=== PATIENT | female | born 1980 | race Two or more races ===

== ENCOUNTER → 2020-07-12 11:32 | Outpatient (BNVA) | payer OTHER, SELFPAY | PROVIDERS: PCP Family Medicine; Visit Provider Surgery | DX: N63.21 Unspecified lump in the left breast, upper outer quadrant (principal) | CPT/HCPCS: 99202 ==

== ENCOUNTER 2020-07-22 13:35 | Outpatient (REF) | payer OTHER, SELFPAY ==
--- NOTE | ~2020-07-22 | MM_ITS ---
EXAMINATION: MM DIAGNOSTIC DIGITAL BREAST TOMOSYNTHESIS, BILATERAL US DIAGNOSTIC ULTRASOUND BREAST, LEFT CLINICAL INFORMATION: Pain upper outer left breast and axilla were in recent months. Chronic stable palpable nodule upper outer left breast for years. The lifetime risk of breast cancer based on the Tyrer-Cuzick Model is 9%. COMPARISON: Mammography: 03/10/2017, targeted left breast ultrasound 03/10/2017, 09/08/2017, 03/14/2018. TECHNIQUE: Digital mammography is performed in craniocaudal and mediolateral oblique views. Digital breast tomosynthesis is performed in implant-displaced craniocaudal and implant-displaced mediolateral oblique views. Synthesized 2D images are generated from the tomosynthesis. Computer-aided detection (CAD) is performed for this exam. Additional exaggerated implant displaced left CC view is provided. Ultrasound left breast is targeted to the area of clinical concern upper outer quadrant left breast and left axilla. Grayscale imaging and color Doppler are performed without and with harmonics. FINDINGS: There are scattered areas of fibroglandular density (ACR BI-RADS breast composition Category b). The implant contours are unremarkable. There are no significant masses, abnormal calcifications, or other abnormalities. There is a stable circumscribed nodule upper outer quadrant left breast similar to prior exam 2017. There is no adenopathy. The skin contours are smooth. No coarsening of the Luis's ligaments. No duct ectasia. Ultrasound left breast demonstrates oval subcutaneous nodule 2:00 position 10 cm from nipple measuring approximately 8 x 7 x 3 mm. There is subtle central increased echogenicity and central color flow suggesting intramammary node. The lesion is stable in size when compared with prior ultrasound exams. There is no surrounding hyperemia. No skin thickening or edema tracking in the soft tissue planes. There is no duct ectasia. Imaging left axilla is unremarkable. Results are discussed with the patient at time of visit. MM/MM tomosynthesis diag imp BI IMPRESSION: 1. No mammographic evidence of malignancy or inflammatory changes. 2. Stable circumscribed nodule under 1 cm upper outer left breast, similar to 2017. ASSESSMENT: BI-RADS 2: Benign RECOMMENDATION: 1. Patient's left breast pain should be managed based on the clinical impression. 2. Otherwise, routine annual screening mammography, beginning age 40, or earlier as clinical risk factors warrant. This patient's information was entered into a reminder system with a target due date for their next mammogram.
== END 2020-07-22 13:36 | disposition home or self-care (01) ==
LOC: HO.MAMMO 13:35
PROVIDERS: PCP Family Medicine; Visit Provider Family Medicine
DX: N63.21 Unspecified lump in the left breast, upper outer quadrant (principal)
CPT/HCPCS: 76642; 77062; 77066

== ENCOUNTER 2022-09-22 14:00 | Outpatient (REF) | payer OTHER, SELFPAY ==
--- NOTE | ~2022-09-22 | MM_ITS ---
EXAMINATION: MM SCREENING DIGITAL BREAST TOMOSYNTHESIS, BILATERAL CLINICAL INFORMATION: Screening. Asymptomatic. The lifetime risk of breast cancer based on the Tyrer-Cuzick Model is 10%. COMPARISON: Mammography: 07/22/2020, 03/10/2017 (baseline); ultrasound left breast 07/22/2020, 03/14/2018, 09/08/2017, 03/10/2017. TECHNIQUE: Digital mammography is performed in craniocaudal and mediolateral oblique views along with computer-aided detection (CAD). Digital breast tomosynthesis is performed in implant-displaced craniocaudal and implant-displaced mediolateral oblique views along with computer-aided detection (CAD). Synthesized 2D images are generated from the tomosynthesis. FINDINGS: There are scattered areas of fibroglandular density (ACR BI-RADS breast composition Category b). Bilateral implant contours are smooth and similar to prior studies. Left breast has a chronic benign smooth oval nodule upper outer quadrant similar to decreased from prior studies. There is no significant mass or architectural abnormality or developing density. No abnormal calcifications. The axilla and skin contours are unremarkable. No significant changes from prior studies. MM/MM tomosynthesis screen imp BI IMPRESSION: No mammographic evidence of malignancy. ASSESSMENT: BI-RADS 2: Benign RECOMMENDATION: Routine annual mammography screening. This patient's information was entered into a reminder system with a target due date for their next mammogram.
== END 2022-09-22 14:01 | disposition home or self-care (01) ==
LOC: HO.MAMMO 14:00
PROVIDERS: PCP Nurse Practitioner Family; Visit Provider Nurse Practitioner Family
DX: Z12.31 Encounter for screening mammogram for malignant neoplasm of breast (principal)
CPT/HCPCS: 77063; 77067

== ENCOUNTER 2023-09-24 08:44 | Outpatient (REF) | payer OTHER, SELFPAY ==
--- NOTE | ~2023-09-24 | MM_ITS ---
EXAMINATION: MM SCREENING DIGITAL BREAST TOMOSYNTHESIS, BILATERAL CLINICAL INFORMATION: Screening. Asymptomatic. COMPARISON: Mammography: Studies compared to prior exams dating back to 2017. TECHNIQUE: Digital mammography is performed in craniocaudal and mediolateral oblique views along with computer-aided detection (CAD). Digital breast tomosynthesis is performed in implant-displaced craniocaudal and implant-displaced mediolateral oblique views along with computer-aided detection (CAD). Synthesized 2D images are generated from the tomosynthesis. FINDINGS: There are scattered areas of fibroglandular density (ACR BI-RADS breast composition Category b). There are no significant masses, abnormal calcifications, or other abnormalities. MM/MM tomosynthesis screen imp BI IMPRESSION: There are no significant changes from prior study. ASSESSMENT: BI-RADS BI-RADS 1 - Negative RECOMMENDATION: Routine annual mammography screening. 1 year F/U This patient's information was entered into a reminder system with a target due date for their next mammogram.
== END 2023-09-24 08:45 | disposition home or self-care (01) ==
LOC: HO.MAMMO 08:44
PROVIDERS: PCP Nurse Practitioner Family; Visit Provider Nurse Practitioner Family
DX: Z12.31 Encounter for screening mammogram for malignant neoplasm of breast (principal)
CPT/HCPCS: 77063; 77067

== ENCOUNTER → 2023-09-24 08:45 | Outpatient (BNV) | payer OTHER, SELFPAY | PROVIDERS: PCP Nurse Practitioner Family; Visit Provider Radiology Diagnostic Radiology | DX: Z12.31 Encounter for screening mammogram for malignant neoplasm of breast (principal) | CPT/HCPCS: 77063; 77067 ==

== ENCOUNTER 2024-11-23 16:09 | Outpatient (REF) | payer OTHER, SELFPAY ==
--- NOTE | ~2024-11-23 | MM_ITS ---
EXAMINATION: MM SCREENING DIGITAL BREAST TOMOSYNTHESIS, BILATERAL CLINICAL INFORMATION: Screening. Asymptomatic. COMPARISON: Mammography: Comparison is made with relevant avialable priors. TECHNIQUE: Digital mammography is performed in craniocaudal and mediolateral oblique views along with computer-aided detection (CAD). Digital breast tomosynthesis is performed in implant-displaced craniocaudal and implant-displaced mediolateral oblique views along with computer-aided detection (CAD). FINDINGS: There are scattered areas of fibroglandular density (ACR BI-RADS breast composition Category b). Bilateral retropectoral saline implants are normal-appearing. There are no significant masses, abnormal calcifications, or other abnormalities. MM/MM tomosynthesis screen imp BI IMPRESSION: There are no significant changes from prior study. ASSESSMENT: BI-RADS BI-RADS 2 - Benign Findings RECOMMENDATION: Routine annual mammography screening. 1 year F/U This patient's information was entered into a reminder system with a target due date for their next mammogram. Electronically signed by: Moni Suarez DO 11/24/2024 08:29 PM EDT
--- OUTSIDE RECORDS SUMMARY | 2024-11-23 16:20 | XMS_ITS | Continuity of Care Document ---
Author Name [facility] Organization [facility] Care Team Providers Care Die Sizer Name Role Phone [facility] Unavailable Unavailable Problems Combined list of problems from Department of Defense and Veterans Affairs facilities. It does not include entries that were removed or entered in error. Problem Status Onset Date Problem Type Date of Resolution Comments Source visit for: services physical Active Condition DoD NORMAL ROUTINE HISTORY AND PHYSICAL ADULT (18-65) Active Condition DoD NORMAL ROUTINE HISTORY AND PHYSICAL - Inactive Condition Discussed control methods at length with pt. and pt has chosen DMPA. Pt cont to breast feed off and on although infant is in childcare. Side effects reviewed with pt as well as plan of care for med administration and pt in agreement. Backup method x 1 mo and pt agrees. UCG test prior to med administration. DoD bleeding during Active Condition minor amount of bleeding. No labor, no LOF, no continued bleeding., RNST, Patient reassured and given precautions. [facility] NORMAL CHECKUP - THIRD TRIMESTER Active Condition DoD ANEMIA Active Condition CONT WITH FESO4 PO QD AND HIGH FE DIET DoD VAGINITIS YOMI ALBICANS Inactive Condition [facility] NORMAL CHECKUP - SECOND TRIMESTER Active Condition D/W PT:PTL/PIH PRECFKC QDPARKING PASS GIVENCOMFORT MEASURES REVIEWED FOR N+V, ENCOURAGED TO RTC IF N+V CONT AND NOT ABLE TO KEEP FOOD/FLUIDS DOWNDIRECTED PT TO DESK FOR QUESTIONS ABOUT DELIVERY COVERAGE DoD Supervision Of Normal First Active Condition D/W PT:PTL/PIH PRECTS AND CF SCREENING OFFERRED- DECLINES BOTH DoD NORMAL CHECKUP - INITIAL Active Condition NL initial OB exam. Unable to obtain good quality CRL by U/S (due to position / movement) - BPD c/w dates. Will use second trimester scan for dating. Ab precautions discussed. Discussed diet, exercise, weight gain and NL complaints of . Questions answered. 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 DoD NO PSYCHIATRIC DIAGNOSIS ON AXIS III Inactive Condition DoD AXIS IV PROBLEMS PRIMARY SUPPORT GROUP Active Condition gone DoD AXIS V GLOBAL ASSESS OF FUNCTIONING (GAF) SCALE ___ (100-0) Active Condition 51-60 DoD NO PSYCHIATRIC DIAGNOSIS ON AXIS II Inactive Condition deferred DoD ANXIETY DISORDER NOS Active Condition with depressive features DoD Pelvic Exam (Internal) Active Condition DoD Chronic post-traumatic stress disorder Active Condition [facility] Fibroadenoma of breast Active Condition Mar 17, 2017 Entered By: JENNIFER LUNDBERG Comment: Diagnost Mammo (and US), L Breast MAR 26: BiRADS 3 (prob benign)Apr 09, 2017 Entered By: JENNIFER LUNDBERG Comment: Likely Fibro-Adenoma; repeat US, L Breast September Entered By: JENNIFER LUNDBERG Comment: Has Breast Implants B/LMay 2017 Entered By: JENNIFER LUNDBERG Comment: Targeted US, L Breast SEPTEMBER 24 @ [facility]:September 17, 2017 Entered By: JENNIFER LUNDBERG Comment: BI RADS 3 (Prob. Benign); Is Likely Fibroadenoma Overlying ImplantDec 2017 Entered By: JENNIFER LUNDBERG Comment: US of L Breast MAR 27: BI RADS 3 (Prob Benign); repeat FEB 25 [facility] Examination of Defined Subpopulations (ICD-9-CM V70.5) Active Condition [facility] Major depressive disorder Active Condition Aug 15, 2015 Entered By: TRENT HART Comment: Recurrent, moderate, without psychotic features [facility] Major Depressive Disorder, Single Episode, Moderate (ICD-9-CM 296.22) Active Condition [facility] Nicotine dependence Active Condition [facility] Onychomycosis of toenails Active Condition [facility] Palpitations Active Condition Aug 04, 2022 Entered By: USMAN MONTANEZ Comment: Had stress test, echo 14d holter and EKG all normal/Neg [facility] Panic Disorder with Agoraphobia (ICD-9-CM 300.21) Active Condition [facility] Paresthesia Active Condition [facility] Peripheral nerve disease Active Condition Oct 15, 2015 Entered By: JENNIFER LUNDBERG Comment: Paresthesias in Four Ext's as of OCTOBER 23:Oct 15, 2015 Entered By: JENNIFER LUNDBERG Comment: Do W/U, then Refer NeuroJul 2015 Entered By: JENNIFER LUNDBERG Comment: EMG/NCS, OCTOBER 23 @ [facility]: No EMG/NCS Evidence forJul 2015 Entered By: JENNIFER LUNDBERG Comment: NeuropathyJul 2015 Entered By: JENNIFER LUNDBERG Comment: See Neuro Note dated NOVEMBER 22Dec 2017 Entered By: JENNIFER LUNDBERG Comment: See Neuro Note Dated FEB 24 [place] Posttraumatic Stress Disorder * (ICD-9-CM 309.81) Active Condition [facility] Sun sensitivity, constitutional Active Condition [facility] Care by local physician Inactive Condition 05/28/2020 Oct 15, 2015 Entered By: JENNIFER LUNDBERG Comment: PCP: Dr Jared Burns [facility] Cyst of breast (SNOMED CT [id number]) Inactive Condition 05/28/2020 Oct 15, 2015 Entered By: JENNIFER LUNDBERG Comment: Last PAP 2014; thinks it was NL Oct 15, 2015 Entered By: JENNIFER LUNDBERG Comment: Ab0 L3 as of OCTOBER 23 [place] gall bladder Inactive Condition 05/28/2020Oct Entered By: JENNIFER LUNDBERG Comment: Cholecystectomy MAR 22; Acute Cholelithiasis [place] Routine gynecologic examination done Inactive Condition 05/28/2020 May 27, 201 9 Entered By: JENNIFER LUNDBERG Comment: Last PAP MAY 28: no Dysplasia [place] Diagnosis: ICD-10-CM Z84.81 Family history of carrier of genetic disease Active Diagnosis [facility] Diagnosis: ICD-10-CM M25.569 Pain in unspecified knee Active Diagnosis [facility] Diagnosis: ICD-10-CM M79.642 Pain in left hand Active Diagnosis [facility] Diagnosis: ICD-10-CM Z12.4 Encounter for screening for malignant neoplasm of cervix Active Diagnosis [facility] Diagnosis: ICD-10-CM F17.210 Nicotine dependence, cigarettes, uncomplicated Active Diagnosis [facility] Medications Combined list of outpatient medications from Department of Defense and Veterans Affairs facilities.Medications provided include 1) outpatient medications from the last 15 months, and 2) patient-reported medications. Medication Details Route Status Patient Instructions Prescription Expires Prescription Number Last Dispense Date Ordering Provider Order Date Order Qty Source DICLOFENAC NA 75MG TAB,EC TAKE ONE TABLET BY MOUTH TWICE DAILY FOR PAIN/INF LAMMATIO N ORAL 06/30/2024 [id number] TARIK USMANIleana VASQUEZ 2024 20 [facility] NAPROXEN 250MG TAB TAKE ONE TABLET BY MOUTH ONCE DAILY NEEDED FOR INFLAMMA TION OF THE TENDON TAKE WITH FOOD USE IN THE MORNING BEFORE WORK; TAKE WITH FOOD. HSE ADVISOR IN [place] ORAL 06/18/2024 [id number] CELESTINE ALVAREZ 2024 10 [facility] OTHER CAP/TAB TAKE IUD ACTIVE Alean BOOTH 2018 [facility] [place] Allergies, Adverse Reactions, Alerts Combined list of allergies from Department of Defense and Veterans Affairs facilities. It does not include entries that were removed or entered in error. Substance Category Reaction Severity Reaction type Status Date Reported Comments Source BACTRIM Propensity to adverse reactions to drug (finding) Itching, Anaphylaxis active 6 [facility] BACTRIM (SULFAMETHOX AZOLE/TRIMET HOPRIM) Drug allergy (disorder) Rash active 0 [facility] [place] Sulfamethoxa zole/Trimeth oprim Drug allergy (disorder) Pruritus, Anaphylaxis active 6 [facility] TERBINAFINE Propensity to adverse reactions to drug (finding) Pharyngeal swelling active 1 [facility] Immunizations Combined list of available immunizations from the Department of Defense and Veterans Affairs facilities. Immunization Series Date Given Administered By Site Reaction Lot Number CVX Code Drug English Composition Instructor Status Comments Source COVID-19 (MODERNA), MRNA, LNP-S, PF, 50 MCG/0.5 ML (AGES 12+ YEARS) 2024 SAMIR BUCKLEY SSA H LEFT DELTO ID [id number] 312 complet ed [facility] [place] INFLUENZA, SPLIT VIRUS, TRIVALENT, PF 2024 INASAMIR ALYCE H LEFT DELTO ID [id number] 140 complet ed [facility] COVID-19 (MODERNA), MRNA, LNP-S, PF, 50 MCG/0.5 ML (AGES 12+ YEARS) 1 2023 LEANDRA KNAPP RIGHT DELTO ID [id number] 312 complet ed [facility] INFLUENZA, INJECTABLE, QUADRIVALENT, PRESERVATIVE FREE 2023 ARIALEANDRA Carvajal LEFT DELTO ID [id number] 150 complet ed Completed Series, [facility] INFLUENZA, RECOMBINANT, QUADRIVALENT, INJECTABLE, PRESERVATIVE FREE 2021 185 complet ed [facility] PNEUMOCOCCAL CONJUGATE PCV20, POLYSACCHARID E [id number] CONJUGATE, ADJUVANT, PF 2021 216 complet ed [facility] COVID-19 (MODERNA), MRNA, LNP-S, PF, 100 MCG/0.5 ML DOSE 2 2020 207 complet ed MOD; [id number]; 1 [facility] COVID-19 (MODERNA), MRNA, LNP-S, PF, 100 MCG/0.5 ML DOSE 1 2020 207 complet ed MOD; [id number]; 1 [facility] INFLUENZA, INJECTABLE, QUADRIVALENT, PRESERVATIVE FREE 2020 150 complet ed [facility] TDAP 2020 115 complet ed Site: Left Deltoid [facility] TD (ADULT), 2 LF TETANUS TOXOID, PRESERVATIVE FREE, ADSORBED 2018 09 complet ed Site: Left Deltoid [facility] INFLUENZA, INJECTABLE, QUADRIVALENT 2018 158 complet ed Site: Left Deltoid [place] INFLUENZA, SEASONAL, INJECTABLE 2016 141 complet ed Site: Right Deltoid [place] FLU,3 YRS (HISTORICAL) 2016 88 complet ed [place] typhoid Vi capsular polysaccharid e vaccine 2 2006 [id number] Adim8 (BP) complet ed typhoid Vi capsular polysacch aride vaccine DoD hepatitis A and hepatitis B vaccine 3 2006 [id number] 104 LocalMed (SKB) complet ed hepatitis A and hepatitis B vaccine DoD influenza virus vaccine, live, attenuated, for intranasal use 0 2006 [id number] 111 Avancen MOD. (MED) complet ed influenza virus vaccine, live, attenuate d, for intranasa l use DoD typhoid Vi capsular polysaccharid e vaccine 2 2004 UNK 101 (TRN) complet ed typhoid Vi capsular polysacch aride vaccine DoD influenza virus vaccine, whole virus 0 2004 UNKNOWN 16 Unknown (UNK) comple t ed influenza virus vaccine, whole virus DoD influenza virus vaccine, split virus (incl. purified surface antigen)-reti red CODE 0 2002 [id number] 15 Other (OTH) complet ed influenza virus vaccine, split virus (incl. purified surface antigen)- retired CODE DoD anthrax vaccine 2 2002 [id number] 24 Other (OTH) complet ed anthrax vaccine DoD anthrax vaccine 2 2002 [id number] 24 (BPT) complet ed anthrax vaccine DoD adenovirus vaccine, type 7, live, oral 1 2002 UNKNOWN 55 Unknown (UNK) comple t ed adenoviru s vaccine, type 7, live, oral DoD typhoid vaccine, parenteral, other than acetone-kille d, dried 0 2002 UNKNOWN 41 Unknown (UNK) comple t ed typhoid vaccine, parentera l, other than acetone-k illed, dried DoD trivalent poliovirus vaccine, live, oral 0 2002 UNKNOWN 02 Unknown (UNK) comple t ed trivalent polioviru s vaccine, live, oral DoD poliovirus vaccine, inactivated 1 2002 [id number] 10 Sanofi Pasteur (PMC) complet ed polioviru s vaccine, inactivat ed DoD yellow fever vaccine 0 2002 [id number] 37 [employer] (AVB) complet ed yellow fever vaccine DoD hepatitis B vaccine, adult dosage 2 2002 UNKNOWN 43 Unknown (UNK) comple t ed hepatitis B vaccine, adult dosage DoD hepatitis A vaccine, adult dosage 2 2002 UNKNOWN 52 Unknown (UNK) comple t ed hepatitis A vaccine, adult dosage DoD hepatitis A and hepatitis B vaccine 2 2002 [id number] 104 Smithine (SKB) complet ed hepatitis A and hepatitis B vaccine DoD measles, mumps and rubella virus vaccine 0 2002 [id number] Merck (MSD) complet ed measles, mumps and rubella virus vaccine DoD influenza virus vaccine, split virus (incl. purified surface antigen)-reti red CODE 0 2002 UNKNOWN 15 Unknown (UNK) comple t ed influenza virus vaccine, split virus (incl. purified surface antigen)- retired CODE DoD influenza virus vaccine, whole virus 1 2002 [id number] 16 Sanofi Pasteur ([facility]) complet ed influenza virus vaccine, whole virus DoD hepatitis B vaccine, adult dosage 1 2002 UNKNOWN 43 Unknown (UNK) comple t ed hepatitis B vaccine, adult dosage DoD hepatitis A vaccine, adult dosage 1 2002 UNKNOWN 52 Unknown (UNK) comple t ed hepatitis A vaccine, adult dosage DoD hepatitis A and hepatitis B vaccine 2 2002 [id number] 104 Nuvolaine (SKB) complet ed hepatitis A and hepatitis B vaccine DoD tetanus and diphtheria toxoids, adsorbed, preservative free, for adult use (2 Lf of tetanus toxoid and 2 Lf of diphtheria toxoid) 0 2002 [id number] Sanofi Pasteur ([facility]) complet ed tetanus and diphtheri a toxoids, adsorbed, preservat deven free, for adult use (2 Lf of tetanus toxoid and 2 Lf of diphtheri a toxoid) DoD meningococcal polysaccharid e vaccine (MPSV4) 1 2002 [id number] Sanofi Pasteur ([facility]) complet ed meningoco ccal polysacch aride vaccine (MPSV4) DoD Results Combined list of recent chemistry, hematology and other laboratory results from Department of Defense and Veterans Affairs, ranging from 15 months to all on record, depending upon the facility. Order Name Results Value Reference Range Date Interpretation Specimen Comments Source MISCELLA NEOUS (QUEST) MISCELLANE OUS See Comment 05/31 Specimen Type: BLOOD Comment: ~For Test: MISCELLANEO US (QUEST) ~Fulgent Porphyria Disorders NGS Panel Refer to CPRS: [place] Imag. Display for Lab Results Ordering Provider: BLANCO JUNIOR Report Released Date/Time: May 31, 2024 11:41 AM Reporting Lab: [facility] [address] [facility] [address] Performing Lab: [facility] [address] [facility], [address] [place] [id number] [facility] MISCELLA NEOUS (QUEST) MISCELLANE OUS comment 05/31 Specimen Type: BLOOD Comment: ~For Test: MISCELLANEO US (QUEST) ~MNG Amyloid Related Disorders (NGS Panel and Copy Number Analysis) 07-11-2024 Refer to CPRS: [place] Imag. Display for Lab Results Ordering Provider: BLANCO JUNIOR Report Released Date/Time: May 31, 2024 11:40 AM Reporting Lab: [facility] [address] [facility] [address] Performing Lab: [facility] [address] [facility], [address] [place] [address] [facility] PORPHYRI NS, TOTAL PLASMA (Q) PORPHYRINS [MASS/VOLU ME] IN SERUM OR PLASMA 0.8 ug/L 1.0 - 5.6 03/30 L Specimen Type: PLASMA Comment: Total porphyrins were within the normal range. This test may not detect elevated porphyrins if the patient is asymptomati c or is undergoing treatment. Please be aware that some porphyrins degrade when samples are unprotected from light or are transported at refrigerate d or ambient temperature . Results reported as below reportable range are considered normal as there are no association s between low porphyrin levels and porphyrin disorders. A portion of the testing was performed at [address] ion reviewed by: Kaitlynn Kelly MD, FACMG. IF THE ORDERING/TR EATING PHYSICIAN HAS ANY QUESTIONS REGARDING THESE RESULTS, PLEASE CONTACT THE [employer] [facility] AT [phone] ext [phone] or ext [phone] AND ASK TO SPEAK WITH THE ALUMINUM WELDER HAIR WORKER. FOR GENERAL QUESTIONS ABOUT [employer] [facility], PLEASE CALL THE GENE INFO LINE AT [phone]. The porphyrias are a group of metabolic disorders, each caused by impairment of one of the enzymes in the heme biosyntheti c pathway. In affected people, buildup of specific pathway intermediat es (porphyrins and porphyrin precursors) causes characteris tic signs and symptoms. The porphyrias are divided into 3 categories based on presentatio n: neuroviscer al; cutaneous; or dual (neurovisce ral and/or cutaneous manifestati ons). While most porphyrias are inherited disorders, environment al factors, other genetic factors, and underlying disease states can influence severity and disease course, such that some people with impaired enzyme function remain asymptomati c. Biochemical laboratory tests on urine, blood, and/or stool specimens are used to identify and differentia te porphyrias based on patterns of accumulated porphyrins and porphyrin precursors, which are unique to each porphyria. Please be aware that some porphyrins and porphyrin precursors degrade when exposed to ultraviolet light or are transported at refrigerate d or ambient temperature , which could lead to false negative results if sample integrity is not maintained. Results reported as below the normal range are considered normal for interpretiv e purposes, as there are no association s between low porphyrin levels and porphyrin disorders. For additional information , please refer to: http://educ ation.[employer] .com/faq/FA Q244 (This link is being provided for information al/educatio nal purposes only.) This test was developed and its analytical performance characteris tics have been determined by [employer] . It has not been cleared or approved by FDA. This assay has been validated pursuant to the CLIA regulations and is used for clinical purposes. Test performed by [email or web address] [address] [place] [address] Phone: Electric Accounting Machine Operator: Ivet Davis MD,PHD,BRANDY Test Reported by [employer] Juan Luis, [facility], [address] [place] [address] Arnaldo White M.D., Ph.D., Director of Laboratorie s , CLIA [id number] TEST PERFORMED AT: , Ordering Provider: NAHUM RODRÍGUEZ MD Report Released Date/Time: Jan 26, 2024 07:41 AM Reporting Lab: [facility] [place] [facility] [address] [facility] [address] Performing Lab: [facility] [place] [facility] [address] [address] [facility] CBC AND DIFF (AUTO) LEUKOCYTES [#/VOLUME] IN BLOOD BY AUTOMATED COUNT 8.73 10*3/uL 4.50 - 11.00 03/30 Specimen Type: BLOOD No comment entered. Ordering Provider: NAHUM RODRÍGUEZ MD Report Released Date/Time: Jan 26, 2024 07:41 AM Reporting Lab: [facility] [place] [address] [address] Performing Lab: [facility] [place] [facility] [address] [facility] [address] [facility] [place] [facility] CBC AND DIFF (AUTO) ERYTHROCYT ES [#/VOLUME] IN BLOOD BY AUTOMATED COUNT 4.95 10*6/uL 3.93 - 5.16 03/30 Specimen Type: BLOOD No comment entered. Ordering Provider: NAHUM RODRÍGUEZ MD Report Released Date/Time: Jan 26, 2024 07:41 AM Reporting Lab: [facility] [place] [facility] [address] [facility] [address] Performing Lab: [facility] [place] [facility] [address] [facility] [address] [facility] [place] [facility] CBC AND DIFF (AUTO) HEMOGLOBIN [MASS/VOLU ME] IN BLOOD 13.5 g/dL 12 - 15.2 03/30 Specimen Type: BLOOD No comment entered. Ordering Provider: NAHUM RODRÍGUEZ MD Report Released Date/Time: Jan 26, 2024 07:41 AM Reporting Lab: [facility] [place] [facility] [address] [facility] [address] Performing Lab: [facility] [place] [address] [place] [address] [facility] [place] [facility] CBC AND DIFF (AUTO) HEMATOCRIT [VOLUME FRACTION] OF BLOOD BY AUTOMATED COUNT 42.3 36.6 - 45.6 03/30 Specimen Type: BLOOD No comment entered. Ordering Provider: NAHUM RODRÍGUEZ MD Report Released Date/Time: Jan 26, 2024 07:41 AM Reporting Lab: [facility] [place] [facility] [address] [facility] [address] Performing Lab: [facility] [place] [facility] [address] [facility] [address] [facility] [place] [facility] CBC AND DIFF (AUTO) MCV [ENTITIC VOLUME] BY AUTOMATED COUNT 85.5 fL 82 - 99 03/30 Specimen Type: BLOOD No comment entered. Ordering Provider: NAHUM RODRÍGUEZ MD Report Released Date/Time: Jan 26, 2024 07:41 AM Reporting Lab: [facility] [place] [address] [address] Performing Lab: [facility] [address] [address] [facility] [place] CBC AND DIFF (AUTO) MCHC [MASS/VOLU ME] BY AUTOMATED COUNT 31.9 g/dL 30.8 - 35.1 03/30 Specimen Type: BLOOD No comment entered. Ordering Provider: NAHUM RODRÍGUEZ MD Report Released Date/Time: Jan 26, 2024 07:41 AM Reporting Lab: [facility] [place] [address] [address] Performing Lab: [facility] [place] [address] [address] [facility] [place] [facility] CBC AND DIFF (AUTO) PLATELETS [#/VOLUME] IN BLOOD BY AUTOMATED COUNT 224 10*3/uL 140 - 360 03/30 Specimen Type: BLOOD No comment entered. Ordering Provider: NAHUM RODRÍGUEZ MD Report Released Date/Time: Jan 26, 2024 07:41 AM Reporting Lab: [facility] [address] [address] Performing Lab: [facility] [place] [facility] [address] [facility] [address] [facility] [place] [facility] CBC AND DIFF (AUTO) ERYTHROCYT E DISTRIBUTI ON WIDTH [RATIO] BY AUTOMATED COUNT 14.2 12.0 - 16.0 03/30 Specimen Type: BLOOD No comment entered. Ordering Provider: NAHUM RODRÍGUEZ MD Report Released Date/Time: Jan 26, 2024 07:41 AM Reporting Lab: [facility] [place] [facility] [address] [facility] [address] Performing Lab: [facility] [address] [facility] [address] [facility] [place] [facility] CBC AND DIFF (AUTO) MONOCYTES [#/VOLUME] IN BLOOD BY AUTOMATED COUNT 0.74 10*3/uL 0.30 - 1.10 03/30 Specimen Type: BLOOD No comment entered. Ordering Provider: NAHUM RODRÍGUEZ MD Report Released Date/Time: Jan 26, 2024 07:41 AM Reporting Lab: [facility] [place] [facility] [address] [facility] [address] Performing Lab: [facility] [address] [facility] [address] [facility] CBC AND DIFF (AUTO) MCH [ENTITIC MASS] BY AUTOMATED COUNT 27.3 pg 26.2 - 32.6 03/30 Specimen Type: BLOOD No comment entered. Ordering Provider: NAHUM RODRÍGUEZ MD Report Released Date/Time: Jan 26, 2024 07:41 AM Reporting Lab: [facility] [place] [facility] [address] [facility] [address] Performing Lab: [facility] [place] [facility] [address] [facility] [address] [facility] CBC AND DIFF (AUTO) NEUTROPHIL S/100 LEUKOCYTES IN BLOOD BY AUTOMATED COUNT 54.9 43.7 - 75.8 03/30 Specimen Type: BLOOD No comment entered. Ordering Provider: NAHUM RODRÍGUEZ MD Report Released Date/Time: Jan 26, 2024 07:41 AM Reporting Lab: [facility] [address] [facility] [address] Performing Lab: [facility] [address] [facility] [address] [facility] CBC AND DIFF (AUTO) LYMPHOCYTE S/100 LEUKOCYTES IN BLOOD BY AUTOMATED COUNT 32.2 14.0 - 42.3 03/30 Specimen Type: BLOOD No comment entered. Ordering Provider: NAHUM RODRÍGUEZ MD Report Released Date/Time: Jan 26, 2024 07:41 AM Reporting Lab: [facility] [address] [facility] [address] Performing Lab: [facility] [address] [facility] [address] [facility] CBC AND DIFF (AUTO) MONOCYTES/ 100 LEUKOCYTES IN BLOOD BY AUTOMATED COUNT 8.5 5.1 - 13.7 03/30 Specimen Type: BLOOD No comment entered. Ordering Provider: NAHUM RODRÍGUEZ MD Report Released Date/Time: Jan 26, 2024 07:41 AM Reporting Lab: [facility] [address] [facility] [address] Performing Lab: [facility] [address] [facility] [address] [facility] CBC AND DIFF (AUTO) EOSINOPHIL S/100 LEUKOCYTES IN BLOOD BY AUTOMATED COUNT 3.6 0.4 - 6.8 03/30 Specimen Type: BLOOD No comment entered. Ordering Provider: NAHUM RODRÍGUEZ MD Report Released Date/Time: Jan 26, 2024 07:41 AM Reporting Lab: [facility] [address] [facility] [address] Performing Lab: [facility] [address] [facility] [address] [facility] CBC AND DIFF (AUTO) BASOPHILS/ 100 LEUKOCYTES IN BLOOD BY AUTOMATED COUNT 0.5 0.1 - 2.0 03/30 Specimen Type: BLOOD No comment entered. Ordering Provider: NAHUM RODRÍGUEZ MD Report Released Date/Time: Jan 26, 2024 07:41 AM Reporting Lab: [facility] [place] [facility] [address] [facility] [address] Performing Lab: [facility] [place] [facility] [address] [facility] [address] [facility] CBC AND DIFF (AUTO) NEUTROPHIL S [#/VOLUME] IN BLOOD BY AUTOMATED COUNT 4.80 10*3/uL 2.20 - 7.60 03/30 Specimen Type: BLOOD No comment entered. Ordering Provider: NAHUM RODRÍGUEZ MD Report Released Date/Time: Jan 26, 2024 07:41 AM Reporting Lab: [facility] [place] [address] [address] Performing Lab: [facility] [place] [address] [address] [facility] [place] [facility] CBC AND DIFF (AUTO) LYMPHOCYTE S [#/VOLUME] IN BLOOD BY AUTOMATED COUNT 2.81 10*3/uL 1.00 - 3.20 03/30 Specimen Type: BLOOD No comment entered. Ordering Provider: NAHUM RODRÍGUEZ MD Report Released Date/Time: Jan 26, 2024 07:41 AM Reporting Lab: [facility] [place] [address] [address] Performing Lab: [facility] [place] [facility] [address] [facility] [address] [facility] [place] CBC AND DIFF (AUTO) EOSINOPHIL S [#/VOLUME] IN BLOOD BY AUTOMATED COUNT 0.31 10*3/uL 0.03 - 0.44 03/30 Specimen Type: BLOOD No comment entered. Ordering Provider: NAHUM RODRÍGUEZ MD Report Released Date/Time: Jan 26, 2024 07:41 AM Reporting Lab: [facility] [place] [address] [address] Performing Lab: [facility] [place] [address] [address] [facility] CBC AND DIFF (AUTO) BASOPHILS [#/VOLUME] IN BLOOD BY AUTOMATED COUNT 0.04 10*3/uL 0.01 - 0.13 03/30 Specimen Type: BLOOD No comment entered. Ordering Provider: NAHUM RODRÍGUEZ MD Report Released Date/Time: Jan 26, 2024 07:41 AM Reporting Lab: [facility] [address] [facility] [address] Performing Lab: [facility] [address] [facility] [address] [facility] CBC AND DIFF (AUTO) IMMATURE GRANULOCYT ES/100 LEUKOCYTES IN BLOOD BY AUTOMATED COUNT 0.3 0.0 - 0.7 03/30 Specimen Type: BLOOD No comment entered. Ordering Provider: NAHUM RODRÍGUEZ MD Report Released Date/Time: Jan 26, 2024 07:41 AM Reporting Lab: [facility] [address] [facility] [address] Performing Lab: [facility] [address] [facility] [address] [facility] CBC AND DIFF (AUTO) IMMATURE GRANULOCYT ES [#/VOLUME] IN BLOOD 0.03 10*3/uL 0.00 - 0.06 03/30 Specimen Type: BLOOD No comment entered. Ordering Provider: NAHUM RODRÍGUEZ MD Report Released Date/Time: Jan 26, 2024 07:41 AM Reporting Lab: [facility] [address] [facility] [address] Performing Lab: [facility] [address] [facility] [address] [facility] CBC AND DIFF (AUTO) NRBC % 0.0 0.0 - 0.0 03/30 Specimen Type: BLOOD No comment entered. Ordering Provider: NAHUM RODRÍGUEZ MD Report Released Date/Time: Jan 26, 2024 07:41 AM Reporting Lab: [facility] [address] [place] [address] Per[facility] Lab: [facility] [address] [facility] [address] [facility] [place] [facility] CBC AND DIFF (AUTO) NRBC, ABS 0.00 10*3/uL 0.00 - 0.00 03/30 Specimen Type: BLOOD No comment entered. Ordering Provider: NAHUM RODRÍGUEZ MD Report Released Date/Time: Jan 26, 2024 07:41 AM Reporting Lab: [facility] [place] [facility] [address] [facility] [address] Performing Lab: [facility] [address] [address] [facility] LIPID PANEL FASTING CHOLESTERO L [MASS/VOLU ME] IN SERUM OR PLASMA 227 mg/dL 08/01 H Specimen Type: SERUM No comment entered. Ordering Provider: SHAYE MONTANEZ SA Report Released Date/Time: Aug 02, 2023 02:05 PM Reporting Lab: [facility] [address] [facility] [address] Performing Lab: [facility] [address] [facility] LIPID PANEL FASTING TRIGLYCERI DE [MASS/VOLU ME] IN SERUM OR PLASMA 102 mg/dL 0 - 150 08/01 Specimen Type: SERUM No comment entered. Ordering Provider: SHAYE MONTANEZ SA Report Released Date/Time: Aug 02, 2023 02:05 PM Reporting Lab: [facility] [place] [facility] [address] [facility] [address] Performing Lab: [facility] [address] [address] [facility] LIPID PANEL FASTING CHOLESTERO L IN LDL [MASS/VOLU ME] IN SERUM OR PLASMA BY CALCULAMARIANO N 107 mg/dL 0 - 129 08/01 Specimen Type: SERUM No comment entered. Ordering Provider: SHAYE MONTANEZ SA Report Released Date/Time: Aug 02, 2023 02:05 PM Reporting Lab: [facility] [place] [facility] [address] [facility] [address] Performing Lab: [facility] [place] [facility] [address] [facility] [address] [facility] LIPID PANEL FASTING CHOLESTERO L.TOTAL/CH OLESTEROL IN HDL [MASS RATIO] IN SERUM OR PLASMA 2.3 08/01 Specimen Type: SERUM No comment entered. Ordering Provider: SHAYE MONTANEZ SA Report Released Date/Time: Aug 02, 2023 02:05 PM Reporting Lab: [facility] [place] [facility] [address] [facility] [address] Performing Lab: [facility] [place] [facility] [address] [facility] [address] [facility] LIPID PANEL FASTING CHOLESTERO L IN HDL [MASS/VOLU ME] IN SERUM OR PLASMA 100 mg/dL 40 - 60 08/01 H Specimen Type: SERUM No comment entered. Ordering Provider: SHAYE MONTANEZ SA Report Released Date/Time: Aug 02, 2023 02:05 PM Reporting Lab: [facility] [place] [facility] [address] [facility] [address] Performing Lab: [facility] [place] [facility] [address] [facility] [address] [facility] BASIC METABOLI C PANEL (non-fas ting) UREA NITROGEN [MASS/VOLU ME] IN SERUM OR PLASMA 11 mg/dL 7 - 25 08/01 Specimen Type: SERUM No comment entered. Ordering Provider: SHAYE MONTANEZ SA Report Released Date/Time: Aug 02, 2023 02:05 PM Reporting Lab: [facility] [place] [facility] [address] [facility] [address] Performing Lab: [facility] [place] [facility] [address] [facility] [address] [facility] BASIC METABOLI C PANEL (non-fas ting) GLUCOSE [MASS/VOLU ME] IN SERUM OR PLASMA 82 mg/dL 65 - 100 03/25 /2024 Specimen Type: SERUM No comment entered. Ordering Provider: SHAYE MONTANEZ SA Report Released Date/Time: Aug 02, 2023 02:05 PM Reporting Lab: [facility] [place] [facility] [address] [facility] [address] Performing Lab: [facility] [address] [address] [facility] [place] [facility] BASIC METABOLI C PANEL (non-fas ting) SODIUM [MOLES/VOL UME] IN SERUM OR PLASMA 144 mmol/L 135 - 145 08/01 Specimen Type: SERUM No comment entered. Ordering Provider: SHAYE MONTANEZ SA Report Released Date/Time: Aug 02, 2023 02:05 PM Reporting Lab: [facility] [address] [address] Performing Lab: [facility] [address] [address] [facility] BASIC METABOLI C PANEL (non-fas ting) POTASSIUM [MOLES/VOL UME] IN SERUM OR PLASMA 4.1 mmol/L 3.5 - 5.0 08/01 Specimen Type: SERUM No comment entered. Ordering Provider: SHAYE MONTANEZ SA Report Released Date/Time: Aug 02, 2023 02:05 PM Reporting Lab: [facility] [address] [address] Performing Lab: [facility] [place] [address] [address] [facility] BASIC METABOLI C PANEL (non-fas ting) CHLORIDE [MOLES/VOL UME] IN SERUM OR PLASMA 106 mmol/L 100 - 110 08/01 Specimen Type: SERUM No comment entered. Ordering Provider: SHAYE MONTANEZ SA Report Released Date/Time: Aug 02, 2023 02:05 PM Reporting Lab: [facility] [address] [address] Performing Lab: [facility] [place] [facility] [address] [facility] [address] [facility] BASIC METABOLI C PANEL (non-fas ting) CARBON DIOXIDE, TOTAL [MOLES/VOL UME] IN SERUM OR PLASMA 27 meq/L 20 - 30 08/01 Specimen Type: SERUM No comment entered. Ordering Provider: SHAYE MONTANEZ SA Report Released Date/Time: Aug 02, 2023 02:05 PM Reporting Lab: [facility] [address] Performing Lab: [facility] [address] [facility] BASIC METABOLI C PANEL (non-fas ting) CREATININE [MASS/VOLU ME] IN SERUM OR PLASMA 1.11 mg/dL 0.50 - 1.40 08/01 Specimen Type: SERUM No comment entered. Ordering Provider: SHAYE MONTANEZ SA Report Released Date/Time: Aug 02, 2023 02:05 PM Reporting Lab: [facility] [address] [address] Performing Lab: [facility] [address] [address] [facility] BASIC METABOLI C PANEL (non-fas ting) GLOMERULAR FILTRATION RATE/1.73 SQ M.PREDICTE D [VOLUME RATE/AREA] IN SERUM, PLASMA OR BLOOD BY CREATININE -BASED FORMULA (CKD-EPI 2020) 64 mL/min 60 08/01 Specimen Type: SERUM No comment entered. Ordering Provider: SHAYE MONTANEZ SA Report Released Date/Time: Aug 02, 2023 02:05 PM Reporting Lab: [facility] [address] Performing Lab: [facility] [address] [address] [facility] LIVER FUNCTION PROTEIN [MASS/VOLU ME] IN SERUM OR PLASMA 7.8 g/dL 6.0 - 8.3 08/01 Specimen Type: SERUM No comment entered. Ordering Provider: SHAYE MONTANEZ SA Report Released Date/Time: Aug 02, 2023 02:05 PM Reporting Lab: [facility] [place] [facility] [address] [facility] [address] Performing Lab: [facility] [place] [facility] [address] [facility] [address] [facility] [place] [facility] LIVER FUNCTION ALBUMIN [MASS/VOLU ME] IN SERUM OR PLASMA 4.2 g/dL 3.5 - 5.0 08/01 Specimen Type: SERUM No comment entered. Ordering Provider: SHAYE MONTANEZ SA Report Released Date/Time: Aug 02, 2023 02:05 PM Reporting Lab: [facility] [place] [facility] [address] [facility] [address] Performing Lab: [facility] [place] [facility] [address] [facility] [address] [facility] [place] [facility] LIVER FUNCTION ALKALINE PHOSPHATAS E [ENZYMATIC ACTIVITY/V OLUME] IN SERUM OR PLASMA 50 U/L 40 - 150 08/01 Specimen Type: SERUM No comment entered. Ordering Provider: SHAYE MONTANEZ SA Report Released Date/Time: Aug 02, 2023 02:05 PM Reporting Lab: [facility] [place] [facility] [address] [facility] [address] Performing Lab: [facility] [place] [facility] [address] [facility] [address] [facility] [place] [facility] LIVER FUNCTION ASPARTATE AMINOTRANS FERASE [ENZYMATIC ACTIVITY/V OLUME] IN SERUM OR PLASMA 25 U/L 5 - 34 08/01 Specimen Type: SERUM No comment entered. Ordering Provider: SHAYE MONTANEZ SA Report Released Date/Time: Aug 02, 2023 02:05 PM Reporting Lab: [facility] [place] [facility] [address] [facility] [address] Performing Lab: [facility] [place] [facility] [address] [facility] [address] [facility] [place] [facility] LIVER FUNCTION ALANINE AMINOTRANS FERASE [ENZYMATIC ACTIVITY/V OLUME] IN SERUM OR PLASMA 26 U/L 08/01 Specimen Type: SERUM No comment entered. Ordering Provider: SHAYE MONTANEZ SA Report Released Date/Time: Aug 02, 2023 02:05 PM Reporting Lab: [facility] [address] [facility] [address] Performing Lab: [address] [address] [facility] LIVER FUNCTION BILIRUBIN. TOTAL [MASS/VOLU ME] IN SERUM OR PLASMA 0.3 mg/dL 0.2 - 1.2 08/01 Specimen Type: SERUM No comment entered. Ordering Provider: SHAYE MONTANEZ SA Report Released Date/Time: Aug 02, 2023 02:05 PM Reporting Lab: [address] [address] Performing Lab: [address] [address] [facility] HEMOGLOB IN A1C PANEL HEMOGLOBIN A1C/HEMOGL OBIN.TOTAL IN BLOOD BY HPLC 4.9 4.0 - 5.6 08/01 Specimen Type: BLOOD Comment: Values obtained from A1C measurement s can vary. For atypical A1C assays, a reported value of 7.0 could actually be between 6.72 and 7.28 if measured by a reference method. A reported value of 9.0 could actually be between 8.73 and 9.27. Ref: http://www. ngsp.org/[place] Pdata.asp Ordering Provider: SHAYE MONTANEZ SA Report Released Date/Time: Aug 02, 2023 02:05 PM Reporting Lab: [address] [address] Performing Lab: [address] [address] [facility] TSH THYROTROPI N [UNITS/VOL UME] IN SERUM OR PLASMA 1.02 u[IU]/mL 0.35 - 5.00 08/01 Specimen Type: SERUM No comment entered. Ordering Provider: SHAYE MONTANEZ SA Report Released Date/Time: Aug 02, 2023 02:05 PM Reporting Lab: [facility] [place] [facility] [address] [facility] [address] Performing Lab: [facility] [place] [facility] [address] [facility] [address] [facility] [place] [facility] CBC AND DIFF (AUTO) LEUKOCYTES [#/VOLUME] IN BLOOD BY AUTOMATED COUNT 6.76 10*3/uL 4.50 - 11.00 08/01 Specimen Type: BLOOD No comment entered. Ordering Provider: SHAYE MONTANEZ SA Report Released Date/Time: Aug 02, 2023 02:05 PM Reporting Lab: [facility] [place] [facility] [address] [facility] [address] Performing Lab: [facility] [place] [facility] [address] [facility] [address] [facility] [place] [facility] CBC AND DIFF (AUTO) ERYTHROCYT ES [#/VOLUME] IN BLOOD BY AUTOMATED COUNT 5.54 10*6/uL 3.93 - 5.16 08/01 H Specimen Type: BLOOD No comment entered. Ordering Provider: SHAYE MONTANEZ SA Report Released Date/Time: Aug 02, 2023 02:05 PM Reporting Lab: [facility] [place] [facility] [address] [facility] [address] Performing Lab: [facility] [place] [facility] [address] [facility] [address] [facility] [place] [facility] CBC AND DIFF (AUTO) HEMOGLOBIN [MASS/VOLU ME] IN BLOOD 15.2 g/dL 12 - 15.2 08/01 Specimen Type: BLOOD No comment entered. Ordering Provider: SHAYE MONTANEZ SA Report Released Date/Time: Aug 02, 2023 02:05 PM Reporting Lab: [facility] [place] [facility] [address] [facility] [address] Performing Lab: [facility] [place] [facility] [address] [facility] [address] [facility] [place] [facility] CBC AND DIFF (AUTO) HEMATOCRIT [VOLUME FRACTION] OF BLOOD BY AUTOMATED COUNT 48.0 36.6 - 45.6 08/01 H Specimen Type: BLOOD No comment entered. Ordering Provider: SHAYE MONTANEZ SA Report Released Date/Time: Aug 02, 2023 02:05 PM Reporting Lab: [facility] [place] [address] [address] Performing Lab: [facility] [place] [facility] [address] [facility] [address] [facility] [place] [facility] CBC AND DIFF (AUTO) MCV [ENTITIC VOLUME] BY AUTOMATED COUNT 86.6 fL 82 - 99 08/01 Specimen Type: BLOOD No comment entered. Ordering Provider: SHAYE MONTANEZ SA Report Released Date/Time: Aug 02, 2023 02:05 PM Reporting Lab: [facility] [place] [address] [address] Performing Lab: [facility] [place] [address] [address] [facility] [place] [facility] CBC AND DIFF (AUTO) MCHC [MASS/VOLU ME] BY AUTOMATED COUNT 31.7 g/dL 30.8 - 35.1 08/01 Specimen Type: BLOOD No comment entered. Ordering Provider: SHAYE MONTANEZ SA Report Released Date/Time: Aug 02, 2023 02:05 PM Reporting Lab: [facility] [address] [address] Performing Lab: [facility] [place] [address] [address] [facility] [place] [facility] CBC AND DIFF (AUTO) PLATELETS [#/VOLUME] IN BLOOD BY AUTOMATED COUNT 282 10*3/uL 140 - 360 08/01 Specimen Type: BLOOD No comment entered. Ordering Provider: SHAYE MONTANEZ SA Report Released Date/Time: Aug 02, 2023 02:05 PM Reporting Lab: [facility] [place] [place] [address] [address] Performing Lab: [facility] [place] [facility] [address] [facility] [address] [facility] [place] [facility] CBC AND DIFF (AUTO) ERYTHROCYT E DISTRIBUTI ON WIDTH [RATIO] BY AUTOMATED COUNT 14.2 12.0 - 16.0 08/01 Specimen Type: BLOOD No comment entered. Ordering Provider: SHAYE MONTANEZ SA Report Released Date/Time: Aug 02, 2023 02:05 PM Reporting Lab: [facility] [place] [facility] [address] [facility] [address] Performing Lab: [facility] [address] [facility] [address] [facility] CBC AND DIFF (AUTO) MONOCYTES [#/VOLUME] IN BLOOD BY AUTOMATED COUNT 0.68 10*3/uL 0.30 - 1.10 08/01 Specimen Type: BLOOD No comment entered. Ordering Provider: SHAYE MONTANEZ SA Report Released Date/Time: Aug 02, 2023 02:05 PM Reporting Lab: [facility] [place] [place] [facility] [address] [facility] [address] Performing Lab: [facility] [place] [facility] [address] [facility] [address] [facility] CBC AND DIFF (AUTO) MCH [ENTITIC MASS] BY AUTOMATED COUNT 27.4 pg 26.2 - 32.6 08/01 Specimen Type: BLOOD No comment entered. Ordering Provider: SHAYE MONTANEZ SA Report Released Date/Time: Aug 02, 2023 02:05 PM Reporting Lab: [facility] [place] [facility] [address] [facility] [address] Performing Lab: [facility] [address] [address] [facility] [place] [facility] CBC AND DIFF (AUTO) NEUTROPHIL S/100 LEUKOCYTES IN BLOOD BY AUTOMATED COUNT 36.4 43.7 - 75.8 08/01 L Specimen Type: BLOOD No comment entered. Ordering Provider: SHAYE MONTANEZ SA Report Released Date/Time: Aug 02, 2023 02:05 PM Reporting Lab: [facility] [place] [facility] [address] [facility] [address] Performing Lab[facility] [place] [facility] [address] [facility] [address] [facility] [place] CBC AND DIFF (AUTO) LYMPHOCYTE S/100 LEUKOCYTES IN BLOOD BY AUTOMATED COUNT 50.1 14.0 - 42.3 08/01 H Specimen Type: BLOOD No comment entered. Ordering Provider: SHAYE MONTANEZ SA Report Released Date/Time: Aug 02, 2023 02:05 PM Reporting Lab: [facility] [place] [facility] [address] [facility] [address] Performing Lab: [facility] [place] [facility] [address] [facility] [address] [facility] [place] [facility] CBC AND DIFF (AUTO) MONOCYTES/ 100 LEUKOCYTES IN BLOOD BY AUTOMATED COUNT 10.1 5.1 - 13.7 08/01 Specimen Type: BLOOD No comment entered. Ordering Provider: SHAYE MONTANEZ SA Report Released Date/Time: Aug 02, 2023 02:05 PM Reporting Lab: [facility] [place] [facility] [address] [facility] [address] Performing Lab: [facility] [place] [facility] [address] [facility] [address] [facility] [place] CBC AND DIFF (AUTO) EOSINOPHIL S/100 LEUKOCYTES IN BLOOD BY AUTOMATED COUNT 2.5 0.4 - 6.8 08/01 Specimen Type: BLOOD No comment entered. Ordering Provider: SHAYE MONTANEZ SA Report Released Date/Time: Aug 02, 2023 02:05 PM Reporting Lab: [facility] [place] [facility] [address] [facility] [address] Performing Lab: [facility] [place] [facility] [address] [facility] [address] [facility] [place] CBC AND DIFF (AUTO) BASOPHILS/ 100 LEUKOCYTES IN BLOOD BY AUTOMATED COUNT 0.6 0.1 - 2.0 08/01 Specimen Type: BLOOD No comment entered. Ordering Provider: SHAYE MONTANEZ SA Report Released Date/Time: Aug 02, 2023 02:05 PM Reporting Lab: [facility] [place] [address] [facility] [address] Performing Lab[facility] [place] [facility] [address] [facility] [address] [facility] [place] CBC AND DIFF (AUTO) NEUTROPHIL S [#/VOLUME] IN BLOOD BY AUTOMATED COUNT 2.46 10*3/uL 2.20 - 7.60 08/01 Specimen Type: BLOOD No comment entered. Ordering Provider: SHAYE MONTANEZ SA Report Released Date/Time: Aug 02, 2023 02:05 PM Reporting Lab: [facility] [place] [facility] [address] [facility] [address] Performing Lab: [facility] [place] [address] [address] [facility] [place] CBC AND DIFF (AUTO) LYMPHOCYTE S [#/VOLUME] IN BLOOD BY AUTOMATED COUNT 3.39 10*3/uL 1.00 - 3.20 08/01 H Specimen Type: BLOOD No comment entered. Ordering Provider: SHAYE MONTANEZ SA Report Released Date/Time: Aug 02, 2023 02:05 PM Reporting Lab: [facility] [address] [phone] Performing Lab: [facility] [address] [place] [phone] [facility] CBC AND DIFF (AUTO) EOSINOPHIL S [#/VOLUME] IN BLOOD BY AUTOMATED COUNT 0.17 10*3/uL 0.03 - 0.44 08/01 Specimen Type: BLOOD No comment entered. Ordering Provider: SHAYE MONTANEZ SA Report Released Date/Time: Aug 02, 2023 02:05 PM Reporting Lab: [facility] [address] [facility] [address] Performing Lab: [facility] [address] [place] [phone] [facility] CBC AND DIFF (AUTO) BASOPHILS [#/VOLUME] IN BLOOD BY AUTOMATED COUNT 0.04 10*3/uL 0.01 - 0.13 08/01 Specimen Type: BLOOD No comment entered. Ordering Provider: SHAYE MONTANEZ SA Report Released Date/Time: Aug 02, 2023 02:05 PM Reporting Lab: [facility] [address] [facility] [address] Performing Lab: [facility] [address] [facility] [address] [facility] CBC AND DIFF (AUTO) IMMATURE GRANULOCYT ES/100 LEUKOCYTES IN BLOOD BY AUTOMATED COUNT 0.3 0.0 - 0.7 08/01 Specimen Type: BLOOD No comment entered. Ordering Provider: SHAYE MONTANEZ SA Report Released Date/Time: Aug 02, 2023 02:05 PM Reporting Lab: [facility] [address] [facility] [address] Performing Lab: [facility] [address] [facility] [address] [facility] CBC AND DIFF (AUTO) IMMATURE GRANULOCYT ES [#/VOLUME] IN BLOOD 0.02 10*3/uL 0.00 - 0.06 08/01 Specimen Type: BLOOD No comment entered. Ordering Provider: SHAYE MONTANEZ SA Report Released Date/Time: Aug 02, 2023 02:05 PM Reporting Lab: [facility] [address] [facility] [address] Performing Lab: [facility] [address] [facility] [address] [facility] Vital Signs Combined list of inpatient and outpatient Vital Signs from Department of Defense and Veterans Affairs, ranging from 12 months to all on record, depending upon the facility. Vital Sign Value Date Comments Source SYSTOLIC BLOOD PRESSURE 118 05/31/19 25 10:38:45 [facility] DIASTOLIC BLOOD PRESSURE 74 025 10:38:45 [facility] PULSE OXIMETRY 99 05/31/2024 10:38:45 [facility] WEIGHT 172 05/31/2024 10:38:45 [facility] BMI 25 kg/m2 05/31/2024 10:38:45 [facility] PAIN 5 05/31/2024 10:38:45 [facility] TEMPERATURE 98 05/31/2024 10:38:45 [facility] PULSE 92 05/31/2024 10:38:45 [facility] RESPIRATION 16 05/31/2024 10:38:45 [facility] Encounters Combined list of: 1) Encounters from Department of Veterans Affairs facilities going backup to the last 18 months, not all [facility] inpatient encounters are included; 2) Encounters from the Department of Defense facilities going backup to 280 months. Location Location Details Encounter Type Encounter Number Reason For Visit Attending Provider ADM Date DC Date Status [place]position Source [facility] [place] [facility] FROM OTHER THAN ER OR [facility] [id number] BANDAR VALDES 08/11 RETURNED [place] [facility] [employer] [place] [facility] [employer] [facility] [place]) OUTPATIENT [id number] re-sche d 6 wks p/p DIAN ARRINGTON 10/17 Released w/o Limitations [facility] [employer] [facility] [place] [facility] [employer] [facility] [place] [place] OUTPATIENT [id number] bmr, full exam ELI ERIC JUSTIN 03/06 Released w/o Limitations [facility] [facility] [place] OUTPATIENT [id number] PREGANC Y RESULTS JOSE WILD 12/04 Released w/o Limitations [facility] [employer] [facility] [place] [facility] [place] OUTPATIENT [id number] @abc ( lmp 09/11/05 edc 06/16/06 ) KAMILA WHITEHEAD 12/07 Released w/o Limitations [facility] [place] [place] [facility] [place] [facility] OUTPATIENT [id number] NOB LMP 09/11/05 EDC 06/20/06 GABY ARRINGTON 12/10 Released w/o Limitations [facility] [facility] [place] [facility] OUTPATIENT [id number] HU EDC 06/20/05 JANAY VELAZQUEZ 01/20 Released w/o Limitations [facility] [place] [place] [facility] [employer] [place] [facility] OUTPATIENT [id number] hu edc 06/18/06 JANAY VELAZQUEZ 02/26 Released w/o Limitations [facility] [place] [facility] [facility] [place] OUTPATIENT [id number] JANAY Abraham 03/24 Released w/o Limitations [facility] [place] [place] [facility] [facility] [employer] [place] [facility] OUTPATIENT [id number] f/u ob JANAY VELAZQUEZ 04/21 Released w/o Limitations [facility] [place] [facility] [facility] [place] OUT[place]IENT [id number] Vagina l PHILLIP Garza 04/26 Released w/o Limitations [facility] [place] [facility] [facility] [place] OUTPATIENT [id number] HU EDC 06/18/06 GABY ARRINGTON 05/20 Released w/o Limitations [facility] [place] [place] [place] [facility] [facility] [place] OUTPATIENT [id number] hu velasco 06/18/06 GABY ARRINGTON 06/01 Released w/o Limitations [facility] [place] [place] [facility] [facility] [employer] [place] [facility] [place] OTHER THAN [place] OR [facility] [id number] MISSY BOCANEGRA 06/14 [place] [facility] [place] [facility] [place] OUTPATIENT [id number] R/O SROM MISSY BOCANEGRA 06/14 [place] [facility] [place] [place] [place] [facility] [facility] [employer] [place] [facility] OUTPATIENT [id number] p/p del.09/13 ALPHONSO SCANLON 07/28 Released w/o Limitations [facility] [place] [place] [facility] [facility] [place] OUTPATIENT [id number] Audiogr am SHAYE MANZANO 04/15 Released w/o Limitations [facility] [place] [place] [place] [place]IENT [id number] SEP MICA GALLO 04/28 Released w/o Limitations [facility] [place] [place] [place] [facility] [facility] OFFICE O/P EST MOD 30 MIN [id number] Diagnos is: ICD-10- CM 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 Outpatient Encounter [id number] 08/09 [facility] Outpatient Encounter [id number] 09/07 [facility] Outpatient Encounter [id number] 09/23 [facility] Outpatient Encounter [id number] 09/28 [facility] DOMICILLI TALHA Outpatient Encounter [id number] 10/10 [facility] Out[facility] Encounter [id number] 10/10 [facility] Outpatient Encounter [id number] 10/10 [facility] OFFICE O/P EST MOD 30 MIN [id number] Diagnos is: ICD-10- CM Z12.4 Encount er for screeni ng for maligna nt neoplas m of cervix TARIK,L EYAL PEDRO 10/10 [facility] Outpatient Encounter [id number] TAURUS CR 10/17 [facility] Out[facility] Encounter [id number] 10/17 [facility] Outpatient Encounter [id number] 10/20 [facility] MANUAL THERAPY 1/> REGIONS [id number] Diagnos is: ICD-10- CM M79.642 Pain in left hand RADHA ALVAREZ E 12/28 [facility] Outpatient Encounter [id number] Diagnos is: ICD-10- CM Z84.81 Family history of carrier of genetic disease ZION RODRÍGUEZ MD 01/24 [facility] Outpatient Encounter [id number] 01/25 [facility] Outpatient Encounter [id number] 03/30 [facility] Outpatient Encounter [id number] 04/25 [facility] Outpatient Encounter [id number] 04/27 [facility] Outpatient Encounter [id number] 05/18 [facility] SYNCH AUDIO-ONLY EST SF 10 [id number] Diagnos is: ICD-10- CM M25.569 Pain in unspeci fied knee STANISLAW GROSSMAN J 05/19 [facility] Outpatient Encounter [id number] 05/19 [facility] Outpatient Encounter [id number] [facility] OFFICE O/P EST MOD 30 MIN [id number] Diagnos is: ICD-10- CM M25.569 Pain in unspeci fied knee Alena MONTANEZ EYALIleana VASQUEZ 05/31 [facility] Outpatient Encounter [id number] 06/05 [facility] [place] [facility] MNGMENT TRAINING [id number] Diagnos is: ICD-10- CM M25.569 Pain in unspeci fied knee ANN APODACA 06/12 [place] THER[place] EXERCISES [id number] Diagnos is: ICD-10- CM M25.569 Pain in unspeci fied knee ANN APODACA 06/20 [place] THER[place] EXERCISES [id number] Diagnos is: ICD-10- CM M25.569 Pain in unspeci fied knee ANN APODACA 07/04 [place] THER[place] EXERCISES [id number] Diagnos is: ICD-10- CM M25.569 Pain in unspeci fied knee ANN APODACA 07/18 [place] THERAPE[place] EXERCISES [id number] Diagnos is: ICD-10- CM M25.569 Pain in unspeci fied knee ANN APODACA MARCELL 07/25 [place] [facility] Outpatient Encounter [id number] 08/15 [facility] Outpatient Encounter [id number] 08/18 [facility] SYNCH AUDIO-ONLY EST SF 10 [id number] Diagnos is: ICD-10- CM Z84.81 Family history of carrier of genetic disease ZION RODRÍGUEZ MD 09/19 [facility] Outpatient Encounter [id number] 10/04 [facility] Procedures Combined list of: 1) Procedures from Department of Veterans Affairs facilities going back up to thelast 18 months, not all [place] non-surgical procedures are included; 2) All procedures from the Department of Defense facilities. Procedure Procedure Type Code Date Perfomer Comments Sourc e NON-STRESS TEST 7 [facility] DOPPLER ECHOCARDIOGRAPHY COLOR FLOW VELOCITY MAPPING (LIST SEPARATELY IN ADDITION TO CODES FOR ECHOCARDIOGRAPHY) 5 [facility] ULTRASOUND, UTERUS, REAL TIME WITH IMAGE DOCUMENTATION, AND MATERNAL EVALUATION, AFTER FIRST TRIMESTER (> OR = 14 WEEKS 0 DAYS), TRANSABDOMINAL APPROACH; SINGLE OR FIRST GESTATION 5 [facility] INDIVIDUAL PSYCHOTHERAPY, INSIGHT ORIENTED, BEHAVIOR MODIFYING AND/OR SUPPORTIVE, IN AN OFFICE OR OUTPATIENT FACILITY, APPROXIMATELY 45 TO 50 MINUTES [id number] WITH THE PATIENT 3 [facility] THERAPEUTIC PROCEDURE, 1 OR MORE AREAS, EACH 15 MINUTES; THERAPEUTIC EXERCISES TO DEVELOP STRENGTH AND ENDURANCE, RANGE OF MOTION AND FLEXIBILITY 3 [facility] THERAPEUTIC PROCEDURE, 1 OR MORE AREAS, EACH 15 MINUTES; THERAPEUTIC EXERCISES TO DEVELOP STRENGTH AND ENDURANCE, RANGE OF MOTION AND FLEXIBILITY 3 [facility] THERAPEUTIC PROCEDURE, 1 OR MORE AREAS, EACH 15 MINUTES; THERAPEUTIC EXERCISES TO DEVELOP STRENGTH AND ENDURANCE, RANGE OF MOTION AND FLEXIBILITY 3 [facility] SCREENING PAPANICOLAOU SMEAR; OBTAINING, PREPARING AND CONVEYANCE OF CERVICAL OR VAGINAL SMEAR TO LABORATORY 3 [facility] PSYCHIATRIC DIAGNOSTIC INTERVIEW EXAMINATION 3 [facility] PURE TONE AUDIOMETRY (THRESHOLD); AIR ONLY 3 [facility] Visual Function Screening Visual Function Screening 58188 7 MICA GOODRICH [facility] Threshold Audiogram (Pure Tone) Threshold Audiogram (Pure Tone) 11742 7 SHAYE MANZANO [facility] Cervical Pap Smear Cervical Pap Smear 64036 7 ALPHONSO SCANLON [facility] OB Services Antepartum Care Only Subsequent Single Visit OB Services Antepartum Care Only Subsequent Single Visit 0502F 7 GABY ARRINGTON [facility] OB Services Antepartum Care Only Subsequent Single Visit OB Services Antepartum Care Only Subsequent Single Visit 0502F 7 GABY ARRINGTON [facility] OB Services Antepartum Care Only Subsequent Single Visit OB Services Antepartum Care Only Subsequent Single Visit 0502F 6 JANAY VELAZQUEZ [facility] Antepartum Care Only Subsequent Single Visit OB Services Antepartum Care Only Subsequent Single Visit 0502F 6 JANAY VELAZQUEZ [place] Cervical [place] Smear Cervical [place] Smear 84907 6 JANAY VELAZQUEZ [facility] Antepartum Care Only Subsequent Single Visit OB Services Antepartum Care Only Subsequent Single Visit 0502F 6 JANAY VELAZQUEZ [place] Cervical Pap Smear Cervical Pap Smear 82762 6 GABY ARRINGTON Direct Fluorescent Antibody Technique Chlamydia trachomatis Direct Fluorescent Antibody Technique Chlamydia trachomatis 14254 6 [facility] Cervical Culture Nei eria gonorrhoeae Cervical Culture Neisseria gonorrhoeae 01873 6 GABY ARRINGTON Ultrasound [place] [address] 6 GABY ARRINGTON Ophthalmological New Patient Start Comprehensive Care Ophthalmological New Patient Start Comprehensive Care 17477 5 ERIC BENITEZ [facility] Determination Of Refractive State Determination Of Refractive State 70524 5 ERIC BENITEZ [facility] Social Work Individual Outpatient Counseling 75-80 Minutes Social Work Individual Outpatient Counseling 75-80 Minutes 09995 5 JEANIE SANTAMARIA [facility] Cognitive Mini-Mental Status Exam Cognitive Mini-Mental Status Exam 08788 5 JEANIE SANTAMARIA [facility] Psychiatric Evaluation Review of Records and Reports Psychiatric Evaluation Review of Records and Reports 46275 5 TESSY HANEY Psychiatric Evaluation Comprehensive Examination Psychiatric Evaluation Comprehensive Examination 35718 5 TESSY HANEY [facility] Social History Combined list of available smoking, tobacco, and other social history from Department of Defense and Veterans Affairs facilities. Social History Type Response Date Comment Source Tobacco smoking status MTIS VA-TOBACCO DOESNT USE WI 30 MIN WAKEUP 08/02/2023 [facility] History of tobacco use VA-TOBACCO USE ADVICE 08/02/2023 [facility] History of tobacco use VA-TOBACCO FORMER USER 10/01/2021 [facility] History of tobacco use [facility]-TO[facility]CO USER SOME DAYS 04/26/2020 [facility] History of tobacco use [place]-TO[facility]ACCO USER EVERY DAY 04/11/2018 [facility] History of tobacco use QUIT TOBACCO USE IN PAST YEAR 03/01/2017 stopped smoking 2 days ago smoked a pack a day [facility] History of tobacco use QUIT TOBACCO USE IN PAST YEAR 04/15/2016 Quit two months ago [facility] History of tobacco use CURRENT SMOKER 07/23/2015 [facility] This section is an empty social history section. [facility] Plan of Care List of future care activities from Department of Veterans Affairs facilities. Additional future care activities may be listed in the Assessment and Plan section. Date/Time Care Activity Care Activity Detail Facili ty 11/23/2024 AMBULATORY - MEDICINE AMBULATORY - MEDICI [facility]
--- OUTSIDE RECORDS SUMMARY | 2024-11-23 16:22 | XMS_ITS | Clinical Summary ---
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 Name Role Phone Unavailable Primary Care Provider Unavailabl e Social History Tobacco Use Types Packs/Day Years Used Date Smoking Tobacco: Never Assessed Comments Unknown Sex and Gender Information Value Date Recorded Sex Assigned at Not on file Legal Sex Female 9:54 PM EDT Gender Identity Not on file Sexual Orientation Not on file Plan of Treatment Health Maintenance Due Date Last Done Comments HIV screening 12/22/1995 Hepatitis C screening 2000 Tetanus adult (Td q 10,TDAP once) 2002 Cervical cancer screening 12/22/2003 Breast cancer screening 2022 Lipid disorder screening 2022 Covid-19 vaccine series ( season) 2024 Influenza vaccine 01/08/2025 05/30/2013 RSV Immunization (1 - 1-dose 75+ series) 2057 Meningococcal Vaccine Aged Out No kleber narcisa eligible based on patient's age to complete this topic Pneumococcal Vaccine (2 - 49 years) Aged Out No longer eligible b ased on patient's age to complete this topic
== END 2024-11-23 16:10 | disposition home or self-care (01) ==
LOC: HO.MAMMO 16:09
PROVIDERS: Visit Provider Nurse Practitioner Family
DX: Z12.31 Encounter for screening mammogram for malignant neoplasm of breast (principal)
CPT/HCPCS: 77063; 77067

== ENCOUNTER → 2024-11-23 16:15 | Outpatient (BNV) | payer OTHER, SELFPAY | PROVIDERS: Visit Provider Internal Medicine | DX: Z12.31 Encounter for screening mammogram for malignant neoplasm of breast (principal) | CPT/HCPCS: 77063; 77067 ==